=== PATIENT | male | born 1945 | race Caucasian/White ===

== ENCOUNTER 2018-10-25 02:54 | Outpatient (CLI) | payer SELFPAY | END 2018-10-25 02:55 | disposition EMS.NT | LOC: EMS 02:54 | PROVIDERS: ATTEND Surgery | DX: R41.0 Disorientation, unspecified (principal); R73.09 Other abnormal glucose ==

== ENCOUNTER 2020-11-25 14:06 | Outpatient (CLI) | payer MEDICARE, OTHER | END 2020-11-25 14:07 | disposition critical access hospital (66) | LOC: EMS 14:06 | DX: I95.9 Hypotension, unspecified (principal) | CPT/HCPCS: A0425; A0429 ==

== ENCOUNTER 2020-11-25 14:29 | Emergency (ER) | payer MEDICARE, OTHER ==
[2020-11-25] MEDS ORDERED: SODIUM CHLORIDE 0.9% 500 ML IV STA (14:35)
--- NOTE | 2020-11-25 14:38 | ED Physician Documentation ---
History of Present Illness - Stated complaint Stated Complaint: LOW BP - History obtained from History obtained from: EMS - Additonal information Additional information: 75-year-old gentleman came from dialysis center with report of low blood pressure. Also report of 2 weeks of cough. He was orthostatic for EMS. He is supposed to get midodrine during dialysis for hypotension. Unclear if this was given. A review of recent dialysis runs that accompanies him shows that he is always hypotensive at dialysis, unclear why today was any different. Spoke with Erik Nelson at [facility] dialysis: today was atypical as he stayed hypotensive after treatment. He was less responsive than normal. He did get one tab midodrine. He usually goes to dialysis by paratransit. Lives with son in [place] Not usually demented/confused. Review of Systems Unable to obtain: Confused PD PAST MEDICAL HISTORY - Allergies Allergies/Adverse Reactions: Allergies Allergy/AdvReac Type Severity Reaction Status Date / Time No Known Drug Allergies Allergy Verified 11/25/20 16:54 PD ED PE NORMAL - Vitals Vital signs reviewed: Yes - General General: Other (Alert and oriented to person and place but not time or events. Unclear the acuity of this.) - HEENT HEENT: PERRL, EOMI - Neck Neck: Supple, no meningeal sign, No bony TTP - Cardiac Cardiac: RRR, No murmur - Respiratory Respiratory: Other (Diminished at the right base) - Abdomen Abdomen: Normal bowel sounds, Soft, Non tender - Back Back: No CVA TTP, No spinal TTP - Derm Derm: Normal color, Warm and dry - Extremities Extremities: No edema, No calf tenderness / cord - Neuro Neuro: No motor deficit, No sensory deficit Eye Opening: To Voice Motor: Obeys Commands Verbal: Confused GCS Score: 13 Results - Vitals Vitals: Vital Signs - 24 hr 11/25/20 11/25/20 11/25/20 14:35 14:43 15:33 Temperature 37 C 37.0 C Heart Rate 78 78 77 Respiratory 16 16 Rate Blood Pressure 115/66 115/66 105/83 H O2 Saturation 85 L 85 L 96 11/25/20 17:00 Temperature 36.6 C Heart Rate 76 Respiratory 16 Rate Blood Pressure 108/50 L O2 Saturation 96 Oxygen O2 Source Nasal cannula Oxygen Flow Rate 98 - EKG (time done) 1550 Rate: Rate (enter#) (77) Rhythm: NSR [place]: Normal Intervals: Prolonged ID, RBBB, Other (LAFB) Ischemia: Normal ST segments. No: ST elevation c/w ischemia Computer interpretation: Agree with computer - Labs Labs: Laboratory Tests 11/25/20 11/25/20 11/25/20 14:50 14:50 14:50 WBC 6.9 RBC 4.03 L Hgb 12.6 L Hct 40.1 L MCV 99.5 H MCH 31.3 H MCHC 31.4 L RDW 15.6 H Plt Count 129 L MPV 9.8 Neut # (Auto) 5.1 Lymph # (Auto) 1.0 L [place] # (Auto) 0.6 Eos # (Auto) 0.1 Baso # (Auto) 0.0 Absolute Nucleated RBC 0.02 Nucleated RBC % 0.3 Sodium 137 Potassium 4.1 Chloride 92 L Carbon Dioxide 34 H Anion Gap 11.0 BUN 26 H Creatinine 5.0 H Estimated GFR (MDRD) 11 L Glucose 215 H Calcium 8.9 Magnesium 2.3 Troponin I High Sens 496.9 H* B-Natriuretic Peptide Nasal Adenovirus (PCR) Nasal B. parapertussis DNA (PCR) Nasal Coronavir 229E PCR Nasal Coronavir HKU1 PCR Nasal Coronavir NL63 PCR Nasal Coronavir OC43 PCR Nasal Enterovir/Rhinovir PCR Nasal Influenza B PCR Nasal Influenza A PCR Nasal Parainfluen 1 PCR Nasal Parainfluen 2 PCR Nasal Parainfluen 3 PCR Nasal Parainfluen 4 PCR Nasal RSV (PCR) Nasal B.pertussis DNA PCR Nasal C.pneumoniae (PCR) [place] Human Metapneumo PCR Nasal M.pneumoniae (PCR) Nasal SARS-CoV-2 (PCR) Ethyl Alcohol < 5.0 11/25/20 11/25/20 14:50 16:01 WBC RBC Hgb Hct MCV MCH MCHC RDW Plt Count MPV Neut # (Auto) Lymph # (Auto) [place] # (Auto) Eos # (Auto) Baso # (Auto) Absolute Nucleated RBC Nucleated RBC % Sodium Potassium Chloride Carbon Dioxide Anion Gap BUN Creatinine Estimated GFR (MDRD) Glucose Calcium Magnesium Troponin I High Sens B-Natriuretic Peptide 502 H Nasal Adenovirus (PCR) NOT DETECTED Nasal B. parapertussis DNA (PCR) NOT DETECTED Nasal Coronavir 229E PCR NOT DETECTED Nasal Coronavir HKU1 PCR NOT DETECTED Nasal Coronavir NL63 PCR NOT DETECTED Nasal Coronavir OC43 PCR NOT DETECTED Nasal Enterovir/Rhinovir PCR NOT DETECTED Nasal Influenza B PCR NOT DETECTED Nasal Influenza A PCR NOT DETECTED Nasal Parainfluen 1 PCR NOT DETECTED Nasal Parainfluen 2 PCR NOT DETECTED Nasal Parainfluen 3 PCR NOT DETECTED Nasal Parainfluen 4 PCR NOT DETECTED Nasal RSV (PCR) NOT DETECTED Nasal B.pertussis DNA PCR NOT DETECTED Nasal C.pneumoniae (PCR) NOT DETECTED [place] Human Metapneumo PCR NOT DETECTED Nasal M.pneumoniae (PCR) NOT DETECTED Nasal SARS-CoV-2 (PCR) NOT DETECTED Ethyl Alcohol - Rads (name of study) CT of the head without IV contrast demonstrates no acute disease Radiology: EMP read contemporaneously Single view chest x-ray demonstrates changes consistent with asbestosis and 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 Possible right pleural effusion. Radiology: EMP read contemporaneously Ct Chest Radiology: EMP read contemporaneously PD MEDICAL DECISION MAKING - ED course ED course: arrives and agrees that he is abnormally confused. He is not usually confused. His confusion got a little better with the administration of a 500 mL saline bolus, but certainly did not resolve. He became hypoxic too, he was hypoxic on arrival but was maintained on a nasal cannula. We tried to discontinue this but desatted into the mid to low 80s. Was very vague about his medical history. For example CT of the chest looks like he has had a TAVR. She really has no recollection of where or when this was done. He has no local physician. Current nephrology orders are being written by physician in [place]. Subsequently troponin returned quite elevated in the setting of a not ischemic EKG. The level of the elevation is really more consistent with some sort of viki nt as opposed to simply being from him on dialysis. Heparin was started and he was given aspirin. Starting to look like he would definitely need admission and we do not do dialysis more cardiology at this critical access hospital. Initially [facility] was called as the nearest facility with those services, they were full. [facility] was called, they were full. [facility] was called Accepted by Dr. Lucero to [facility] for further evaluation and treatment at 4:[address] Chest without 1. Dense alveolar consolidation involving right lower lobe posteriorly and atelectatic change/consolidation involving the entire right middle lobe. 2. Minor airspace opacity in the lingula and posterior left lower lobe. 3. Heavy calcified pleural plaquing bilaterally consistent with asbestosis. 4. Valvu loplasty and coronary artery disease. 5.. Hepatic and perisplenic ascites. Correlate with liver function. Given above findings ordered ceftriaxone/zithromax for pna. Departure - Departure Disposition: 02 Transfer Acute Care Hosp Clinical Impression: NSTEMI (non-ST elevated myocardial infarction), Pleural effusion, Encephalopathy, Transient hypotension, ESRD (end stage renal disease) Pneumonia Qualifiers: Pneumonia type: due to unspecified organism Laterality: right Lung location: lower lobe of lung Qualified Code(s): J18.9 - Pneumonia, unspecified organism Condition: Serious Discharge Date/Time: 11/25/20 18:03
--- NOTE | 2020-11-25 14:56 | XRAY Report ---
PROCEDURE: Chest 1 View X-Ray INDICATIONS: cough TECHNIQUE: One view of the chest was acquired. COMPARISON: None. FINDINGS: Surgical changes and devices: Median sternotomy wires are seen. Prosthetic heart valve is also noted. Lungs and pleura: There is suggestion of moderate right pleural effusion with elevation of right russell diaphragm and right lower lung field atelectasis. Densely calcified pleural plaques are noted in bila teral lung sam suggestive of prior asbestos exposure. Underlying pulmonary infiltrates cannot be e ntirely excluded. No gross pneumothorax. Mediastinum: There is tortuous thoracic aorta. Heart size is enlarged. Bones and chest wall: No suspicious bony lesions. Overlying soft tissues appear unremarkable. IMPRESSION: 1. Extensive calcified pleural plaques in bilateral lung field suggestive of prior asbestos exposure. Underlying bilateral pulmonary infiltrates cannot be entirely excluded. No pneumothorax. 2. Suggestion of small to moderate right pleural effusion with right lower lung field atelectasis. Reviewed by: Jacoby Echols MD on 11/25/2020 2:54 PM PDT Approved by: Jacoby Echols MD on 11/25/2020 2:54 PM PDT Station ID: [id number]
[2020-11-25 14:59] LABS: BASOPHILS % (AUTO) 0.6 %; EOSINOPHILS # (AUTO) 0.1 10^3/uL (0.0-0.7); EOSINOPHILS % (AUTO) 1.9 %; HCT - HEMATOCRIT 40.1 % (42.0-52.0); HGB - HEMOGLOBIN 12.6 g/dL (14.0-18.0); LYMPHOCYTES % (AUTO) 13.8 %; MEAN CORPUSCULAR HEMOGLOBIN 31.3 pg (27.0-31.0); MEAN CORPUSCULAR HGB CONC 31.4 g/dL (32.0-36.0); MEAN CORPUSCULAR VOLUME 99.5 fL (80.0-94.0); MEAN PLATELET VOLUME 9.8 fL (7.4-11.4); MONOCYTES # (AUTO) 0.6 10^3/uL (0.0-1.0); MONOCYTES % (AUTO) 9.2 %; NEUTROPHILS # (AUTO) 5.1 10^3/uL (1.5-6.6); NEUTROPHILS % (AUTO) 73.9 %; NRBC ABSOLUTE COUNT (AUTO) 0.02 x10^3/uL; NUCLEATED RED BLOOD CELLS AUTO 0.3 /100WBC; PLT - PLATELET COUNT 129 10^3/uL (130-450); RED BLOOD COUNT 4.03 10^6/uL (4.70-6.10); RED CELL DISTRIBUTION WIDTH 15.6 % (12.0-15.0); WHITE BLOOD COUNT 6.9 x10^3/uL (4.8-10.8)
[2020-11-25 15:08] LABS: BUN - BLOOD UREA NITROGEN 26 mg/dL (6-20); CALCIUM 8.9 mg/dL (8.5-10.3); CARBON DIOXIDE - CO2 34 mmol/L (21-32); CHLORIDE 92 mmol/L (101-111); ETOH - ETHANOL < 5.0 mg/dL; GFR - MDRD 11 (>89); GLUCOSE 215 mg/dL (70-100); MAGNESIUM 2.3 mg/dL (1.7-2.8); POTASSIUM 4.1 mmol/L (3.5-5.0); SODIUM 137 mmol/L (135-145)
--- NOTE | 2020-11-25 15:26 | CT Report ---
PROCEDURE: HEAD WO INDICATIONS: confusion TECHNIQUE: Noncontrast 4.5 mm thick angled axial sections acquired from the foramen magnum to the vertex. For r adiation dose reduction, the following was used: automated exposure control, adjustment of mA and/or kV according to patient size. COMPARISON: None. FINDINGS: Image quality: Excellent. CSF spaces: Basal cisterns are patent. No extra-axial fluid collections. Ventricles are normal in size and shape. Brain: No midline shift. No intracranial masses or hemorrhage. Simmons-white matter interface is norm al. Mild cerebral cortical atrophy. Skull and face: Calvarium and visualized facial bones are intact, without suspicious lesions. Sinuses: Visualized sinuses and mastoids are clear. IMPRESSION: 1. No CT evidence of acute intracranial process. 2. Age-appropriate exam. Reviewed by: Maxine Sarabia MD on 11/25/2020 3:25 PM PDT Approved by: Maxine Sarabia MD on 11/25/2020 3:25 PM PDT Station ID: [id number]
[2020-11-25] MEDS ORDERED: ASPIRIN 325 MG TABLET PO STA (16:35)
[2020-11-25] MEDS ORDERED: HEPARIN 25000UNITS/500ML (D5W) 25,000 UNIT/500 ML BAG IV SCH (17:00)
--- NOTE | 2020-11-25 17:02 | CT Report ---
PROCEDURE: CHEST WO INDICATIONS: dyspnea, hypoxemia TECHNIQUE: Noncontrast images were acquired from the pulmonary apices to the posterior costophrenic angles. Mul tiplanar MIP reformats were then acquired. For radiation dose reduction, the following was used: au tomated exposure control, adjustment of mA and/or kV according to patient size. COMPARISON: Chest x-ray performed same day FINDINGS: Image quality: Excellent. Lungs and pleura: Asymmetric elevation of the right hemidiaphragm. Calcification along the pleural betancourt rfaces bilaterally, particularly along the medial right diaphragm surface. Lung volumes are consequen tly lobe. Dense airspace consolidation posteriorly in the right lung and atelectatic change of the ri ght middle lobe. Atelectasis at the base of the lingula and patchy alveolar opacity in the left costo phrenic sulcus. There are no pleural effusions. Mediastinum: Heart size is accentuated by low lung volumes but probably normal. There is a percutane ous aortic valve replacement, dense three-vessel coronary calcification and/or stenting. Dense mitral annular calcification.. No pericardial effusion. No mediastinal adenopathy by size criteria. Thor acic aorta and central pulmonary arteries are normal in size. Esophagus is normal in caliber. No hi atal hernia. Bones and chest wall: Median sternotomy changes. No suspicious bony lesions. Bridging osteophytosis throughout the thoracic spine and degenerative endplate change and disc height loss in the upper lumb ar spine. No vertebral body compression fractures. No axillary or supraclavicular adenopathy by size criteria. The thyroid is normal in size and there are no incidental findings. Abdomen: Small moderate perihepatic ascites, particularly for the dome of the liver. Dependent gallbl adder calcification. Trace perisplenic ascites. Mild bilateral renal atrophy. IMPRESSION: 1. Dense alveolar consolidation involving right lower lobe posteriorly and atelectatic change/consoli dation involving the entire right middle lobe. 2. Minor airspace opacity in the lingula and posterior left lower lobe. 3. Heavy calcified pleural plaquing bilaterally consistent with asbestosis. 4. Valvuloplasty and coronary artery disease. 5.. Hepatic and perisplenic ascites. Correlate with liver function. Reviewed by: Maxine Sarabia MD on 11/25/2020 5:01 PM PDT Approved by: Maxine Sarabia MD on 11/25/2020 5:01 PM PDT Station ID: [id number]
[2020-11-25] MEDS ORDERED: cefTRIAXone 1 GM in SODIUM CHLORIDE 0.9% MINIBAG 100 ML IV STA (17:04)
[2020-11-25] MEDS ORDERED: AZITHROMYCIN INJ 500 MG in SODIUM CHLORIDE 0.9% 250 ML IV STA (17:04)
[2020-11-25 17:37] LABS: B. PARAPERTUSSIS- RESP PCR PAN NOT DETECTED; B. PERTUSSIS- RESP PCR PANEL NOT DETECTED; C. PNEUMONIAE- RESP PCR PANEL NOT DETECTED; CORONAVIRUS 229E-RESP PCR NOT DETECTED; CORONAVIRUS HKU1-RESP PCR NOT DETECTED; CORONAVIRUS NL63-RESP PCR NOT DETECTED; CORONAVIRUS OC43-RESP PCR NOT DETECTED; HUMAN METAPNEUMOVIRUS NOT DETECTED; INFLUENZA A- RESP PCR PANEL NOT DETECTED; INFLUENZA B - RESP PCR PANEL NOT DETECTED; M. PNEUMONIAE- RESP PCR PANEL NOT DETECTED; PARAINFLUENZA VIRUS 1 NOT DETECTED; PARAINFLUENZA VIRUS 2 NOT DETECTED; PARAINFLUENZA VIRUS 3 NOT DETECTED; PARAINFLUENZA VIRUS 4 NOT DETECTED; RHINOVIRUS/ENTEROVIRUS NOT DETECTED; RSV- RESP PCR PANEL NOT DETECTED; SARS-CoV-2 -RESP PCR PANEL NOT DETECTED
[2020-11-25 18:04] VITALS: BP 108/50
== END 2020-11-25 18:03 | disposition short-term general hospital (02) ==
LOC: EDUNIT# → ED 14:29
DX: I21.4 Non-ST elevation (NSTEMI) myocardial infarction (principal); J90 Pleural effusion, not elsewhere classified; G93.40 Encephalopathy, unspecified; I95.9 Hypotension, unspecified; N18.6 End stage renal disease; Z99.2 Dependence on renal dialysis; J18.9 Pneumonia, unspecified organism; R09.02 Hypoxemia; Z20.822 Contact with and (suspected) exposure to COVID-19
CPT/HCPCS: 36415; 70450; 71045; 71250; 80048; 83735; 83880; 84484; 85025; 87631; 93005; 96374; 96375; 99285; A9270; G0480; 0202U; 80320

== ENCOUNTER 2020-11-25 17:58 | Outpatient (CLI) | payer MEDICARE, OTHER | END 2020-11-25 17:59 | disposition short-term general hospital (02) | LOC: EMS 17:58 | PROVIDERS: ATTEND Emergency Medicine | DX: I21.4 Non-ST elevation (NSTEMI) myocardial infarction (principal); N18.6 End stage renal disease | CPT/HCPCS: A0425; A0426 ==

== ENCOUNTER 2021-03-10 10:25 | Outpatient (CLI) | payer MEDICARE, OTHER | END 2021-03-10 10:26 | disposition short-term general hospital (02) | LOC: EMS 10:25 | DX: R41.0 Disorientation, unspecified (principal); R53.83 Other fatigue | CPT/HCPCS: A0425; A0429 ==

== ENCOUNTER 2021-06-14 06:13 | Outpatient (CLI) | payer MEDICARE, OTHER | END 2021-06-14 06:14 | disposition E | LOC: EMS 06:13 | DX: I46.9 Cardiac arrest, cause unspecified (principal) ==